=== PATIENT | female | born 1940 | race Caucasian/White ===

== ENCOUNTER 2019-04-07 22:24 | Emergency (ER) | payer MEDICARE, OTHER ==
[~2019-04-07] VITALS: Ht 165.1 cm; Wt 87.8 kg
[2019-04-07 22:29] VITALS: Ht 165.1 cm; Wt 87.8 kg
[2019-04-08] MEDS ORDERED: ONDANSETRON 4 MG INJ IV STA (06:09)
[2019-04-08] MEDS ORDERED: NICARDipine HCL 30 MG CAPSULE PO ONE (06:30)
[2019-04-08] MEDS ORDERED: MECLIZINE 12.5 MG TAB PO ONE (06:30)
[2019-04-08] MEDS ORDERED: MECL12.574 PO (07:22)
--- NOTE | 2019-04-08 07:22 | ERD ---
ER Documentation Chief Complaint Chief Complaint dizziness x 1 hour after drinking prescription cough med HPI This is a 78-year-old female who presents to the emergency department complaining of a sudden onset of dizziness that occurred roughly 20 minutes after taking antitussive medication. This medication been prescribed to her by her primary care physician she is been experiencing a dry cough for over 1 month. Several days ago the cough became productive with whitish sputum. She was prescribed Robitussin. She indicated that the dizziness progressed into a spinning-like sensation where she felt as though the room was spinning around her. She felt nauseous. Her symptoms were worse when she was standing and better when she would lie supine with her eyes closed. She had one episode of nonbloody nonbilious emesis. She denies any chest pain or pressure. She denies a headache. ROS All systems reviewed and are negative except as per history of present illness. Allergies Allergies: Coded Allergies: Penicillins (Verified Allergy, Unknown, 04/08/19) PMhx/Soc History of Surgery: Yes (hysterectomy) Hx Cardiac Disorders: Yes (htn, hld) Hx Miscellaneous Medical Probl: Yes (anemia) Hx Alcohol Use: No Hx Substance Use: No Hx Tobacco Use: No Smoking Status: Never smoker Physical Exam Vitals Vital Signs Date Temp Pulse Resp B/P (MAP) Pulse Ox O2 O2 Flow FiO2 Time Delivery Rate 04/07/19 98.1 83 18 176/86 96 22:29 (116) Physical Exam Constitutional:Well-developed. Well-nourished. HEENT:Normocephalic. Atraumatic.Pupils were equal round reactive to light. Moist mucous membranes. Neck: No nuchal rigidity. No lymphadenopathy. No posterior cervical spine tenderness or step-offs. Respiratory: Not using accessory muscles of respiration.Lungs were clear to auscultation bilaterally. No rhonchi. No rales. No wheezing. Cardiovascular: Regular rate regular rhythm.No murmurs. No rubs were appreciated.S1, S2 normal. Distal pulses are palpable 2+ bilaterally. Skin: No petechia, no purpura. No lesions on the palms or the soles of the feet. No maculopapular rash. NEURO: Patient was alert, awake, orientated x3.No facial droop. Gait observed and normal with no ataxia.Speech had regular rate and rhythm. No focal neurological deficits. Peripheral fatigable nystagmus Result Diagram: 04/08/19 0523 04/08/19 0523 Results 24 hrs Laboratory Tests Test 04/08/19 05:23 04/08/19 05:34 04/08/19 07:15 White Blood Count 7.2 10^3/ul Red Blood Count 3.44 10^6/ul Hemoglobin 11.0 g/dl Hematocrit 33.5 % Mean Corpuscular Volume 97.4 fl Mean Corpuscular Hemoglobin 32.0 pg Mean Corpuscular 32.8 g/dl Hemoglobin Concent Red Cell Distribution Width 13.5 % Platelet Count 228 10^3/UL Mean Platelet Volume 9.6 fl Immature Granulocytes % 0.100 % Neutrophils % 49.9 % Lymphocytes % 39.2 % Monocytes % 9.4 % Eosinophils % 0.8 % Basophils % 0.6 % Nucleated Red Blood Cells % 0.0 /100WBC Immature Granulocytes # 0.010 10^3/ul Neutrophils # 3.6 10^3/ul Lymphocytes # 2.8 10^3/ul Monocytes # 0.7 10^3/ul Eosinophils # 0.1 10^3/ul Basophils # 0.0 10^3/ul Nucleated Red Blood Cells # 0.0 10^3/ul Sodium Level 139 mmol/L Potassium Level 4.7 mmol/L Chloride Level 105 mmol/L Carbon Dioxide Level 24 mmol/L Anion Gap 10 Blood Urea Nitrogen 39 mg/dl Creatinine 1.37 mg/dl Est Glomerular Filtrat Rate mL/min mL/min Glucose Level 119 mg/dl Calcium Level 9.4 mg/dl Troponin I 0.016 ng/ml Bedside Glucose 113 mg/dL Bedside Urine pH (LAB) 5.0 Bedside Urine Protein (LAB) Negative Bedside Urine Glucose (UA) Negative Bedside Urine Ketones (LAB) Negative Bedside Urine Blood Negative Bedside Urine Nitrite (LAB) Negative Bedside Urine Leukocyte Esterase Negative (L Current Medications Medications Dose Sig/Steffanie Start Time Status Last (Trade) Ordered Route PRN Stop Time Admin Dose Reason Admin Meclizine 25 mg ONCE ONCE 04/08/19 DC 04/08/19 HCl PO 06:30 06:57 (Antivert) 04/08/19 06:31 Ondansetron 4 mg ONCE STAT 04/08/19 DC 04/08/19 HCl (Zofran IV 06:09 06:57 Inj) 04/08/19 06:10 Nicardipine 30 mg ONCE ONCE 04/08/19 DC 04/08/19 HCl PO 06:30 06:59 (Cardene) 04/08/19 06:31 Procedures/MDM This patient was seen and evaluated by myself. The patient presented to the emergency department complaining of dizziness. My differential diagnosis included but was not limited to hypovolemia, myocardial infarction, pulmonary embolism, hypoglycemia, hypoxia, anemia, vasovagal episode, hypothyroidism, anxiety, peripheral or central vertigo. The patient was placed on a lunchroom monitor, continuous pulse oximetry and IV access established by nursing staff. The patient was given intravenous morphine. 12 Lead EKG tracing ordered and reviewed by myself showed: Sinus bradycardia 59 bpm and no arrhythmia. MD interval normal. QRS duration normal. No ST segment elevation No ST segment depression. No changes consistent with acute ischemia. Given that the patient has had a cough for over 1 month that has now become productive I do feel is necessary to obtain a chest radiograph. This was reviewed by myself there is no evidence of pneumonia or pneumothorax. The patient was also hypertensive with no signs of endorgan damage to suggest hypertensive emergency or urgency. She was given Cardene with improvement of her blood pressure. With respect to the patient's vertigo I did feel her symptoms were likely peripheral as the CT scan the patient's head showed no intracerebral hemorrhage mass-effect or midline shift. Her symptoms improved with Antivert. She felt comfortable being discharged home. She was able to tolerate oral intake. The patient was discharged home in fair condition. They were instructed to return to the emergency department at any time if there was any worsening of their condition. The patient stated they would follow up with their PCP in the next 24-48 hours to initiate a suitable medication regimen under the care of their PCP as well as to allow their PCP to monitor any drug reactions. The patient was discharged home with prescriptions after they gave informed consent to the new medication. They were also fully informed by myself on the adverse effects and adverse drug interactions in order to provide adequate safeguards to prevent possible adverse reactions to medications. Departure Diagnosis: Primary Impression: Vertigo Additional Impression: Accelerated hypertension Condition: Fair AYAH RIVERO MD Apr 08, 2019 07:22
[2019-04-08 08:59] VITALS: BP 132/55; PULSE 65; RESP 18
== END 2019-04-08 09:03 | disposition home or self-care (01) ==
LOC: E/R 22:24
DX: R42 Dizziness and giddiness (principal); I10 Essential (primary) hypertension; R11.0 Nausea; R40.2142 Coma scale, eyes open, spontaneous, at arrival to emergency department; R40.2252 Coma scale, best verbal response, oriented, at arrival to emergency department; R40.2362 Coma scale, best motor response, obeys commands, at arrival to emergency department
CPT/HCPCS: 36415; 70450; 71045; 80048; 81003; 82962; 84484; 85025; 93005; 96374; 99285; J2405